=== PATIENT | female | born 1940 | race Caucasian/White ===

== ENCOUNTER → 2016-08-12 | Outpatient (CLI) | payer OTHER | LOC: CIMAGING 15:13 | PROVIDERS: ATTEND Neurological Surgery | DX: M47.892 Other spondylosis, cervical region (principal); M50.321 Other cervical disc degeneration at C4-C5 level; M53.2X2 Spinal instabilities, cervical region; M46.92 Unspecified inflammatory spondylopathy, cervical region; M41.82 Other forms of scoliosis, cervical region | CPT/HCPCS: 72050-PO ==

== ENCOUNTER → 2017-01-20 | Outpatient (CLI) | payer OTHER ==
[~2017-01-20] MED LIST: IOPAMIDOL (ISOVUE-300) 100 ML BTL ONE
== END ==
LOC: CIMAGING 14:25
PROVIDERS: ATTEND Surgery
DX: K43.9 Ventral hernia without obstruction or gangrene (principal); D17.9 Benign lipomatous neoplasm, unspecified; K57.30 Diverticulosis of large intestine without perforation or abscess without bleeding
CPT/HCPCS: 74177; Q9967; 82565-PO

== ENCOUNTER → 2017-08-25 | Outpatient (CLI) | payer OTHER | LOC: BHFA 10:00 | PROVIDERS: ATTEND Internal Medicine Cardiovascular Disease | DX: G45.9 Transient cerebral ischemic attack, unspecified (principal); I10 Essential (primary) hypertension ==

== ENCOUNTER 2018-06-24 05:42 | Day surgery (SDC) | payer OTHER ==
[2018-06-24] MEDS ORDERED: ceFAZolin 2 GM/DEXTROSE 100 ML IV ONE (05:48)
[2018-06-24] MEDS ORDERED: SCOPOLAMINE HYDROBROMIDE 1 MG/3 DAYS PATCH TD ONE (05:48)
[2018-06-24] MEDS ORDERED: LR 1,000 ML IV ONE (05:50)
--- NOTE | 2018-06-24 06:58 | PDHPUP ---
History & Physical Update H&P update statement: This history and physical update is based on an assessment of the patient which was completed after admission or registration (within 24 hours), but prior to the surgery/procedure. H&P update: H&P reviewed & patient examined, no change in patient's condition since H&P completed
[2018-06-24] MEDS ORDERED: MIDAZOLAM 2 MG/2 ML VIAL IVP ONE (07:02)
--- NOTE | 2018-06-24 07:03 | PDANEPAE ---
ANE History of Present Illness ventral hernia ANE Past Medical History - Cardiovascular History Hx Hypertension: Yes Hx Arrhythmias: No Hx Chest Pain: No Hx Coronary Artery / Peripheral Vascular Disease: No Hx CHF / Valvular Disease: No Hx Palpitations: No - Pulmonary History Hx COPD: No Hx Asthma/Reactive Airway Disease: No Hx Recent Upper Respiratory Infection: No Hx Oxygen in Use at Home: No Hx Sleep Apnea: No Sleep Apnea Screening Result - Last Documented: Negative - Neurologic History Hx Cerebrovascular Accident: No Hx Seizures: No Hx Dementia: No - Endocrine History Hx Diabetes: No Hypothyroid: Yes Hyperthyroid: No Obesity: no - Renal History Hx Renal Disorders: No - Liver History Hx Hepatic Disorders: No - Neurological & Psychiatric Hx Hx Neurological and Psychiatric Disorders: Yes Neurological / Psychiatric History Comment: carpal tunnel bilat wrists - Cancer History Hx Cancer: Yes Cancer History Comment: melamoma. michele disease left leg 15 yrs ago - Congenital Disorder History Hx Congenital Disorders: No - GI History GERD: no Hx Gastrointestinal Disorders: Yes Gastrointestinal History Comment: diverticulitis - Other Health History Other Health History: cataracts. 1 missing tooth lower on right - Chronic Pain History Chronic Pain: No - Surgical History Prior Surgeries: 09/2016 melanoma removed. skin ca removal ANE Review of Systems Review of systems is: negative Review of Systems: - Exercise capacity Exercise capacity: >=4 METS METS (RN): 4 METS ANE Patient History - Allergies Allergies/Adverse Reactions: amitriptyline HCl [From Elavil] Allergy (Verified 06/24/18 07:23) Other-Enter Comments amoxicillin Allergy (Verified 06/24/18 07:23) "rectal bleeding" aspirin [From Percodan] Allergy (Verified 06/24/18 07:23) Other-Enter Comments azithromycin Allergy (Verified 06/24/18 07:23) "extreme dizziness" benzonatate [From Tessalon Perles] Allergy (Verified 06/24/18 07:23) Other-Enter Comments cefuroxime Allergy (Verified 06/24/18 07:23) "diarrhea & rectal bleeding" ciprofloxacin [From Cipro] Allergy (Verified 06/24/18 07:23) "sunburn from the inside out" cobalt Allergy (Verified 06/24/18 07:23) Other-Enter Comments codeine Allergy (Verified 06/24/18 07:23) Other-Enter Comments dexamethasone Allergy (Verified 06/24/18 07:23) Headache estradiol [From Estrace] Allergy (Verified 06/24/18 07:23) Other-Enter Comments levofloxacin [From Levaquin] Allergy (Verified 06/24/18 07:23) "Extreme Dizziness" oxycodone [From Percodan] Allergy (Verified 06/24/18 07:23) Other-Enter Comments propoxyphene [From Darvon] Allergy (Verified 06/24/18 07:23) Other-Enter Comments Sulfa (Sulfonamide Antibiotics) Allergy (Verified 06/08/18 16:04) Swelling/neck,face,throat - Home Medications Home medications: home medication list seen and reviewed Home Medications: Levothyroxine [Synthroid 50 mcg (*)] 50 mcg PO DAILY06 09/12/15 [Last Taken ] Pseudoephedrine HCl [Sudafed] 30 mg PO DAILY 09/12/15 [Last Taken 06/23/18] Zolpidem Tartrate [Ambien 5MG (*)] 5 - 10 mg PO HS 09/12/15 [Last Taken 06/23/18 ] diphenhydrAMINE [Benadryl 25 MG (*)] 25 mg PO HS 09/12/15 [Last Taken 06/22/18] Cholecalciferol Vit D3 [Vitamin D3 2000 units tab (OTC)] 2,000 units PO DAILY [Last Taken 06/17/18] Herbals/Supplements -Info Only 1 ea PO DAILY 06/08/18 [Last Taken Unknown] Multivitamins [Multivitamin (*)] 1 each PO DAILY 06/08/18 [Last Taken 06/17/18] Psyllium Husk (with Sugar) [Metamucil Packet] 1 each PO HS 06/08/18 [Last Taken 06/23/18] Ibuprofen [Motrin (*)] 200 mg PO DAILY PRN 06/24/18 [Last Taken Unknown] - NPO status NPO Status: no food or drink >8 hours NPO Since - Liquids (Date): 06/23/18 NPO Since - Liquids (Time): 19:00 NPO Since - Solids (Date): 06/23/18 NPO Since - Solids (Time): 19:15 - Anes Hx Anes Hx: post operative nausea and vomiting - Smoking Hx Smoking Status: Never smoked - Family Anes Hx Family Hx Anesthesia Complications: none ANE Labs/Vital Signs - Vital Signs Height: 157.48 cm Weight: 61.235 kg ANE Physical Exam - Airway Neck exam: FROM Mallampati Score: Class 2 Mouth exam: small mouth opening - Pulmonary Pulmonary: no respiratory distress - Cardiovascular Cardiovascular: regular rate and rhythym - ASA Status ASA Status: II ANE Anesthesia Plan Anesthesia Plan: general endotracheal anesthesia
[2018-06-24] MEDS ORDERED: MIDAZOLAM 2 MG/2 ML VIAL ONE (07:07)
[2018-06-24] MEDS ORDERED: fentaNYL 100 MCG/2 ML INJ ONE (07:07)
[2018-06-24] MEDS ORDERED: PROPOFOL/EMULSION 500 MG/50 ML BOTTLE IV ONE ×2 (07:07→07:51)
[2018-06-24] MEDS ORDERED: PROPOFOL 200 MG/20 ML VIAL ONE (07:07)
[2018-06-24] MEDS ORDERED: BUPIVACAINE 0.5% 30 ML SDV ONE (07:12)
[2018-06-24] MEDS ORDERED: ROCURONIUM 50 MG/5 ML VIAL ONE (07:13)
[2018-06-24] MEDS ORDERED: BUPIVACAINE/EPI 0.5% 30 ML SDV ONE (07:14)
[2018-06-24] MEDS ORDERED: BUPIVACAINE/EPI 0.25% 30 ML SDV ONE (07:14)
[2018-06-24] MEDS ORDERED: KETOROLAC 30 MG/1 ML SDV ONE (07:43)
[2018-06-24] MEDS ORDERED: DEXAMETHASONE 4 MG/ML VIAL ONE ×2 (07:43→07:44)
[2018-06-24] MEDS ORDERED: ONDANSETRON 4 MG/2 ML VIAL ONE (07:44)
[2018-06-24] MEDS ORDERED: ePHEDrine SULFATE 25 MG/5 ML SYR ONE (08:01)
[2018-06-24] MEDS ORDERED: PHENYLEPHRINE HCL 100 MCG/ML SYR ONE (08:23)
[2018-06-24] MEDS ORDERED: LABETALOL HCL 5 MG/ML 20 ML MDV IVP PRN (08:28)
[2018-06-24] MEDS ORDERED: MEPERIDINE 25 MG/0.5 ML AMP IVP PRN (08:28)
[2018-06-24] MEDS ORDERED: ONDANSETRON 4 MG/2 ML VIAL IVP PRN (08:28)
[2018-06-24] MEDS ORDERED: METOCLOPRAMIDE 10 MG/2 ML VIAL IVP PRN (08:28)
[2018-06-24] MEDS ORDERED: LR 500 ML IV PRN (08:28)
[2018-06-24] MEDS ORDERED: ALBUTEROL 3 ML DEYVIAL IH PRN (08:28)
[2018-06-24] MEDS ORDERED: fentaNYL 100 MCG/2 ML INJ IVP PRN (08:28)
[2018-06-24] MEDS ORDERED: PHENYLEPHRINE HCL 100 MCG/ML SYR IVP PRN (08:28)
[2018-06-24] MEDS ORDERED: PROMETHAZINE HCL 25 MG/ML INJ IVP PRN (08:28)
[2018-06-24] MEDS ORDERED: HYDROmorphONE/DILAUDID 1 MG/ML INJ IVP PRN (08:28)
[2018-06-24] MEDS ORDERED: NALOXONE HCL 0.4 MG/ML INJ IVP PRN (08:28)
[2018-06-24] MEDS ORDERED: DEXAMETHASONE 4 MG/ML VIAL IVP PRN (08:28)
[2018-06-24] MEDS ORDERED: ROPIVACAINE HCL 150 MG/30 ML INJ ONE (09:02)
[2018-06-24] MEDS ORDERED: SUGAMMADEX SODIUM 200 MG/2 ML VIAL IVP ONE (09:13)
--- NOTE | 2018-06-24 09:38 | POSTOPPROG ---
Post Op Note Date of Operation: 06/24/18 Surgeon: Belen Worthy Patient Carrier: fiona Anesthesiologist: vicente Anesthesia: GET(General Endotracheal) Pre-op Diagnosis: ventral, inguinal and umbilical hernia Post-op Diagnosis: ventral, inguinal, femoral and umbilical hernia Indication: 77yo F with multiple symptomatic hernias Procedure: DV umb hernia rep vent hernia rep w mesh, ing and fem hernia rep w mesh Findings: multiple abdominal wall hernias with omentum Inf/Abcess present in the surg proc area at time of surgery?: No EBL: Minimal Complications: none immediately post-op Bowel Protocol: N/A Clean Closure Performed: N/A Specimen(s): none
--- NOTE | 2018-06-24 10:25 | POSTANESTH ---
Post Anesthetic Evaluation Cardiovascular Status: Normal, Stable Respiratory Status: Normal, Stable Level of Consciousness/Mental Status: Can Participate in Eval Pain Control: Adequate, Prn Tx Ordered Nausea/Vomiting Control: Adequate, Prn Tx Ordered Complications Possibly Related to Anesthesia: None Noted
[2018-06-24 11:07] VITALS: BP 113/60
--- NOTE | 2018-06-27 11:30 | GOP ---
[f rep st] OPERATIVE REPORT DATE OF OPERATION: 06/24/2018 SURGEON: Belen Worthy MD WAITER/WAITRESS [employer]GE: Mary Marinelli PA-C. ANESTHESIA: General. ANESTHESIOLOGIST: Oneil Chauhan MD. PREOPERATIVE DIAGNOSIS: 1. Ventral hernia. 2. Right inguinal hernia. 3. Umbilical hernia. POSTOPERATIVE DIAGNOSIS: 1. Ventral hernia. 2. Right inguinal hernia. 3. Right femoral hernia. 4. Umbilical hernia. PROCEDURE PERFORMED: Da Darell umbilical hernia repair, da Darell ventral hernia repair with mesh, da Darell right inguinal and right femoral hernia repair with mesh. FINDINGS: Multiple abdominal wall hernias with omentum. SPECIMENS: None. ESTIMATED BLOOD LOSS: Minimum. INDICATIONS: The patient is a 77-year-old woman who has multiple abdominal hernias. The ones in her groin are bothersome when walking and ones in her abdomen are also bothersome when supine. DESCRIPTION OF PROCEDURE: The patient was brought into the operating room, placed supine on the table, and general anesthesia was administered. Her abdomen was prepped and draped in the usual sterile fashion. Infiltrated all sites with 0.5% Marcaine prior to making incision. I made an incision on the left lateral portion of her mid abdomen. I elevated it. I inserted the Veress needle. It passed the hanging drop test. Her abdomen insufflated easily to a pressure of 15 mmHg. I used a Darby Smart camera and a 5 mm trocar to enter her abdomen. There were no injuries from Veress needle placement. Under direct vision, I placed an 8 mm trocar in the subxiphoid area and an 8 mm trocar in between the first and second trocars. She was placed in the Trendelenburg position. The robot was brought in and docked. The camera was calibrated. I introduced scissors and fenestrated bipolar under direct vision. I first explored her abdomen. No injuries were noted. I then began reducing the large amount of omentum from the ventral hernia which was lateral and inferior to the umbilicus, as well as from the umbilical hernia. Attention was then drawn to creating a preperitoneal space for the ventral hernia. I closed the ventral hernia with 0 V-Loc 180. I then placed a piece of ProGrip mesh with 2 cm coverage in every direction in the preperitoneal space. I closed the peritoneum with 2-0 180 V-Loc. I then closed the umbilical hernia with 6-inch 0 180 V-Loc. The umbilical defect was approximately 1.5 cm. I elected not to use mesh in this area. Attention was then drawn to the pelvis. I created a peritoneal flap. The inferior epigastric vessels were kept anterior to the plane. I identified the pubis. I identified both a femoral hernia, as well as an indirect inguinal hernia. I was able to reduce both of these fully. I did not need to divide the round ligament. I created a space laterally to accommodate the mesh. I then placed a piece of laparoscopic self-fixating ProGrip mesh to cover the direct, indirect, and femoral spaces. I closed the peritoneum with 3-0 V-Loc 90. No injuries were noted. The ports were removed under direct vision. The abdomen allowed to desufflate. Skin closed with 4-0 Monocryl. Dermabond applied. She was awakened in the operating room, extubated, transferred to PACU in stable condition. /[id number]/MODL MTDD
== END 2018-06-24 11:25 | disposition home or self-care (01) ==
LOC: FSGY 05:42
PROVIDERS: ATTEND Surgery
PROC: 0WUF4JZ Supplement Abdominal Wall with Synthetic Substitute, Percutaneous Endoscopic Approach (ICD-10-PCS; principal; 2018-06-24 07:15)
PROC: 0YU54JZ Supplement Right Inguinal Region with Synthetic Substitute, Percutaneous Endoscopic Approach (ICD-10-PCS; principal; 2018-06-24 07:15)
PROC: 0YQ74ZZ Repair Right Femoral Region, Percutaneous Endoscopic Approach (ICD-10-PCS; principal; 2018-06-24 07:15)
PROC: 0WQF4ZZ Repair Abdominal Wall, Percutaneous Endoscopic Approach (ICD-10-PCS; principal; 2018-06-24 07:15)
PROC: 8E0W4CZ Robotic Assisted Procedure of Trunk Region, Percutaneous Endoscopic Approach (ICD-10-PCS; principal; 2018-06-24 07:15)
DX: K40.30 Unilateral inguinal hernia, with obstruction, without gangrene, not specified as recurrent (principal); K42.9 Umbilical hernia without obstruction or gangrene; K43.9 Ventral hernia without obstruction or gangrene; I10 Essential (primary) hypertension; K21.9 Gastro-esophageal reflux disease without esophagitis; E78.00 Pure hypercholesterolemia, unspecified; I34.1 Nonrheumatic mitral (valve) prolapse; I34.0 Nonrheumatic mitral (valve) insufficiency; Z85.820 Personal history of malignant melanoma of skin
CPT/HCPCS: C1781; J0690; J1100; J1885; J2250; J2370; J2405; J2704; J2795; J3010